=== PATIENT | female | born 1930 | race Caucasian/White ===

== ENCOUNTER 2019-04-15 15:29 | Emergency (ER) | payer OTHER, MEDICARE ==
[~2019-04-15] VITALS: Ht 157.5 cm; Wt 52.2 kg
[~2019-04-15 15:29] MED LIST: ASPIRIN325 PO; CRESTOR5 MG PO; FOSAMAX5 MG PO; LUMIGAN2.5 M1 OPHTHALMIC; NORVASC 5 MG TAB5 MG PO; TRAVATAN 0.004%5 ML OPHTHALMIC; ZETIA10 MG PO
[2019-04-15 17:51] VITALS: BP 145/67
== END 2019-04-15 17:51 | disposition home or self-care (01) ==
LOC: M.ERS 15:29
DX: S53.491A Other sprain of right elbow, initial encounter (principal); J44.9 Chronic obstructive pulmonary disease, unspecified; E11.9 Type 2 diabetes mellitus without complications; I73.9 Peripheral vascular disease, unspecified; I10 Essential (primary) hypertension; Z90.710 Acquired absence of both cervix and uterus; W01.0XXA Fall on same level from slipping, tripping and stumbling without subsequent striking against object, initial encounter; Y92.89 Other specified places as the place of occurrence of the external cause; Y93.89 Activity, other specified; Y99.8 Other external cause status